=== PATIENT | male | born 1970 | race Caucasian/White ===

== ENCOUNTER 2016-06-25 16:43 | Emergency (ER) | payer OTHER ==
[~2016-06-25] VITALS: Ht 170.2 cm; Wt 70.0 kg
[2016-06-25 17:07] VITALS: BP 166/115; PULSE 82; TEMP 99.6; O2SAT 99
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
[2016-06-25] MEDS ORDERED: LIDOCAINE HCL 1% 50 ML VIAL INFIL ONE (18:00)
[2016-06-25] MEDS ORDERED: KETOROLAC TROMETHAMINE 30 MG/ML (IVP) VIAL IV PUSH ONE (18:00)
[2016-06-25] MEDS ORDERED: TETANUS/DIPHTHERIA TOXOID ADULT 0.5 ML VIAL IM ONE (18:00)
[2016-06-25 18:01] VITALS: BP 155/102; PULSE 84; RESP 18; O2SAT 85
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
[2016-06-25] MEDS ORDERED: CEPH-460 PO (18:21)
[2016-06-25] MEDS ORDERED: MOBI15TA PO (18:21)
[2016-06-25] MEDS ORDERED: ULTR50TA5 PO (18:21)
[2016-06-25] MEDS ORDERED: LIDOCAINE 1%/EPINEPHrine 1:100,000 SOLN 20 ML VIAL INFIL ONE (18:30)
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
== END 2016-06-25 21:16 | disposition home or self-care (01) ==
LOC: NEPC 16:43
DX: S01.311A Laceration without foreign body of right ear, initial encounter (principal); S16.1XXA Strain of muscle, fascia and tendon at neck level, initial encounter; S09.90XA Unspecified injury of head, initial encounter; S29.012A Strain of muscle and tendon of back wall of thorax, initial encounter; V49.49XA Driver injured in collision with other motor vehicles in traffic accident, initial encounter; Y92.410 Unspecified street and highway as the place of occurrence of the external cause
CPT/HCPCS: 12015; 70450; 71010; 72125; 72128; 96374; 99284; J1885